=== PATIENT | female | born 1995 | race Caucasian/White ===

== ENCOUNTER 2018-02-09 21:52 | Emergency (ER) | payer SELFPAY ==
--- NOTE | 2018-02-09 22:32 | CPEKG ---
Heart Rate: 66 RR Interval: 909 P-R Interval: 128 QRSD Interval: 84 QT Interval: 404 QTC Interval: 424 P [place]: 18 QRS [place]: 53 T Wave [place]: 15 EKG Severity - NORMAL ECG - EKG Impression: SINUS RHYTHM Electronically Signed By: Zahraa Abraham 09-Feb-2018 22:36:04
[2018-02-09] MEDS ORDERED: ONDANSETRON DISINTEGRATING 4 MG TAB PO ONE (22:40)
[2018-02-09] MEDS ORDERED: ONDANSETRON 4MG PREPACK#2 BTL TAKEHOME ONE (22:40)
--- NOTE | 2018-02-09 22:42 | EDPHY ---
H & P Stated Complaint: pt states took energy pills approx 1800, since having n/v/cp Time Seen by Provider: 02/09/18 22:30 HPI/ROS: HPI The patient presents with chest pain, nausea and vomiting. 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 She took a new tablet for energy which she bought over- the-counter. This had 350 mg of caffeine in it. About 2 hr after taking the pill she developed dull diffuse chest pain which was constant ever since. She then developed nausea with vomiting and vomited several times. She says she feels very jittery. She drink a cup of coffee as well. She has never taken this medication before. She does not have any shortness of breath, leg swelling , recent travel. She does not have any fever or cough.. REVIEW OF SYSTEMS Constitutional: No fever, no chills. Eyes: No discharge. ENT: No sore throat. Cardiovascular: Positive for chest pain, no palpitations. Respiratory: No cough, no shortness of breath. Gastrointestinal: No abdominal pain, positive for vomiting. Genitourinary: No hematuria. Musculoskeletal: No back pain. Skin: No rashes. Neurological: No headache. 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 PHYSICAL General Appearance: Alert, no distress Eyes: Pupils equal and round no pallor or injection ENT, Mouth: Mucous membranes moist Respiratory: There are no retractions, lungs are clear to auscultation Cardiovascular: Regular rate and rhythm Gastrointestinal: Abdomen is soft and non-tender, no masses, bowel sounds normal Neurological: A&O, moves all extremities Skin: Warm and dry, no rashes Musculoskeletal: Neck is supple non tender Extremities: symmetrical, full range of motion Psychiatric: Patient is oriented X 3, there is no agitation Source: Patient Exam Limitations: No limitations - Medical/Surgical History Hx Asthma: No Hx Chronic Respiratory Disease: No Hx Diabetes: No Hx Cardiac Disease: No Hx Renal Disease: No Hx Cirrhosis: No Hx Alcoholism: No Hx HIV/AIDS: No Hx Splenectomy or Spleen Trauma: No Other PMH: depression - Social History Smoking Status: Never smoked Constitutional: Initial Vital Signs Temperature (C) 37 C 02/09/18 22:04 Heart Rate 88 02/09/18 22:04 Respiratory Rate 20 02/09/18 22:04 Blood Pressure 139/75 H 02/09/18 22:04 O2 Sat (%) 96 02/09/18 22:04 O2 Delivery Mode Room Air Allergies/Adverse Reactions: cinnamon Allergy (Verified 02/09/18 22:08) mosquito bites Allergy (Uncoded 02/09/18 22:08) Home Medications: Medication Instructions Recorded Prozac 10 MG (*) 02/09/18 Medical Decision Making - Diagnostics EKG Interpretation: EKG: Complete interpretation has been separately recorded in the [employer] archive. Summary impression: Normal sinus rhythm Differential Diagnosis: This is a 22-year-old healthy female who presents with chest pain, nausea, vomiting for the last several hours which started spontaneously, 2 hr after ingesting energy pills with a large amount of caffeine in them. On exam, she has normal vital signs, she is well-appearing, cardiovascular and pulmonary exams are benign. EKG includes caffeine intoxication, ACS less likely, pulmonary embolism less likely, patient is perc negative, anxiety attack, GERD. In the emergency department, patient was given Zofran and had no ongoing vomiting. EKG was checked and revealed a normal sinus rhythm without any arrhythmia or ischemic change. She will be discharged home. - Data Points Medications Given: Discontinued Medications Ondansetron HCl (Zofran Odt) 4 mg PO EDNOW ONE Stop: 02/09/18 22:41 Last Admin: 02/09/18 22:45 Dose: 4 mg Ondansetron HCl (Zofran Odt 4 Mg Prepack#2) 1 btl TAKEHOME EDNOW ONE Stop: 02/09/18 22:41 Last Admin: 02/09/18 23:17 Dose: 1 btl Departure - Departure Disposition: Home, Routine, Self-Care Clinical Impression: Chest pain Qualifiers: Chest pain type: unspecified Qualified Code(s): R07.9 - Chest pain, unspecified Nausea & vomiting Qualifiers: Vomiting type: unspecified Vomiting Intractability: non-intractable Qualified Code(s): R11.2 - Nausea with vomiting, unspecified Condition: Good Instructions: Ondansetron (By mouth), Chest Pain (ED), Caffeine Use (ED) Additional Instructions: Please return to the Emergency Department if you are worse in any way. Avoid using the pill that you took tonight. Referrals: [facility],. [Clinic] - As per Instructions
[2018-02-09 23:24] VITALS: BP 128/83
== END 2018-02-09 23:23 | disposition home or self-care (01) ==
DX: R07.9 Chest pain, unspecified (principal); R11.2 Nausea with vomiting, unspecified